=== PATIENT | female | born 1990 | race African-American/Black ===

== ENCOUNTER 2019-06-13 08:55 | Emergency (ER) | payer MEDICAID ==
[~2019-06-13] VITALS: Ht 160 cm; Wt 93.0 kg
[2019-06-13 09:03] VITALS: BP 132/81
--- NOTE | 2019-06-13 09:13 | NUR ---
Patient ambulated to bed 2. RN evaluating patient at bedside.
--- NOTE | 2019-06-13 09:53 | NUR ---
C/O PAINFUL URINATION X 10 DAYS. WENT TO [facility] & FINISHED KEFLEX 3 DAYS AGO. PT PRESENTS WITH BURNING, AND PAINFUL URINATION X 11 DAYS. PT STATES SHE FINISHED CEPHALEXIN 500MG 1 CAP PO QID X 3 DAYS AGO. DENIES, NAUSEA, VOMITING, BACK PAIN, FEVER MED HX: GALL BLADDER REMOVAL
--- NOTE | 2019-06-13 09:58 | NUR ---
Patient discharged BY DR ÁLVAREZ. Written and verbal after care instructions given and explained BY DR ÁLVAREZ Patient alert, oriented and verbalized understanding of instructions. Ambulatory with steady gait. All questions addressed prior to discharge. ID band removed. Patient advised to follow up with PMD. Rx of MACROBID given. Patient educated on indication of medication including possible reaction and side effects BY DR ÁLVAREZ.
[2019-06-13 10:57] VITALS: BP 132/81
== END 2019-06-13 09:58 | disposition home or self-care (01) ==
LOC: MED 08:55
DX: N39.0 Urinary tract infection, site not specified (principal); K21.9 Gastro-esophageal reflux disease without esophagitis; F17.210 Nicotine dependence, cigarettes, uncomplicated; Z98.890 Other specified postprocedural states; Z71.6 Tobacco abuse counseling
CPT/HCPCS: 81002; 81025; 99283